=== PATIENT | male | born 1970 | race Caucasian/White ===

== ENCOUNTER 2019-07-13 17:35 | Emergency (ER) | payer SELFPAY ==
[2019-07-13] MEDS ORDERED: NA CHLORIDE 0.9% 1,000 ML ONE (17:43)
[2019-07-13] MEDS ORDERED: KETOROLAC 30 MG/ML INJ ONE (17:43)
[2019-07-13 18:06] LABS: Hematocrit 45.7 % (39.6-49.0); Lymphocytes % 19.5 % (15.3-44.8); RBC Red Blood Cell Count 5.15 M/uL (4.33-5.43)
[2019-07-13] MEDS ORDERED: HYDROMORPHONE HCL 1 MG/ML INJ ONE (18:15)
[2019-07-13 18:22] LABS: Potassium 3.6 mmol/L (3.5-5.1)
--- NOTE | 2019-07-13 18:43 | RAD REPORT ---
EXAM DESCRIPTION: CT - Stone Protocol - 07/13/2019 6:09 pm CLINICAL HISTORY: Flank pain. FLANK PAIN COMPARISON: <Comparisons> TECHNIQUE: Axial images were obtained without oral or IV contrast. Lack of contrast limits solid org an and vascular assessment. The [id number] spans the entirety of the system partially obscuring uppermost abdomen and lung bases. Coronal reformatted images were obtained and reviewed. All CT scans are performed using dose optimization technique as appropriate and may include automated exposure control or mA/KV adjustment according to patient size. FINDINGS: The lower lung brizuela are clear. Imaged portions of the liver and spleen show no suspicious findings on non-contrast imaging. The panc reas and adrenal glands are normal. No pathologic lymphadenopathy in the abdomen or pelvis. No urinary tract stones or obstructive uropathy. No bowel obstruction, free air, free fluid or abscess. Mild sigmoid diverticulosis coli. Normal appen gerardo noted. No significant bony abnormality. IMPRESSION: No urinary tract stones or obstructive uropathy.
--- NOTE | 2019-07-13 20:57 | RAD REPORT ---
EXAM DESCRIPTION: CTAbdomen Pelvis W Contrast - 07/13/2019 8:35 pm CLINICAL HISTORY: Abdominal pain. ABD PAIN COMPARISON: Stone Protocol dated 07/13/2019 TECHNIQUE: Biphasic CT imaging of the abdomen and pelvis was performed with 100 ml non-ionic IV cont rast. All CT scans are performed using dose optimization technique as appropriate and may include automated exposure control or mA/KV adjustment according to patient size. FINDINGS: The lung bases are clear. Mild diffuse fatty liver is seen. The spleen, pancreas, adrenal glands and right kidney are normal. T he left kidney demonstrates several areas of diminished arterial enhancement involving the cortex of the mid and posterior lower left kidney most compatible with areas of segmental renal infarction. No hydronephrosis. No evidence of renal vein thrombus. No bowel obstruction, free air, free fluid or abscess. The appendix is normal. No evidence of signi ficant lymphadenopathy. No suspicious bony findings. 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
--- NOTE | 2019-07-13 22:40 | EDPHYS ---
Physician Documentation [facility] Name: Vinh Terrazas Age: 49 yrs Sex: Male : 1970 Arrival Date: 07/13/2019 Time: 17:37 Bed 5 Private MD: ED Physician Shaquille Escamilla HPI: 07/13 18:27 This 49 yrs old Male presents to ER via EMS with complaints of Abdominal Pain. gs 18:27 The patient presents with abdominal pain in the left lower quadrant. Onset: The gs symptoms/episode began/occurred acutely, just prior to arrival. The symptoms do not radiate. Associated signs and symptoms: Pertinent negatives: dysuria, fever, shortness of breath. The symptoms are described as sharp. Modifying factors: The symptoms are alleviated by nothing, the symptoms are aggravated by nothing. Severity of pain: At its worst the pain was severe in the emergency department the pain is unchanged. The patient has not experienced similar symptoms in the past. Historical: - Allergies: 17:41 No Known Allergies; ss - Home Meds: 17:41 montelukast oral oral [Active]; levothyroxine oral [Active]; amlodipine oral [Active]; ss Trazodone Oral [Active]; - PMHx: 17:41 Migraines; Hypertension; Hypothyroidism; ss - PSHx: 17:41 R elbow; ss - Immunization history:: Adult Immunizations up to date. - Social history:: Smoking status: Patient/guardian denies using tobacco. - Ebola Screening: : Patient denies exposure to infectious person Patient denies travel to an Ebola-affected area in the 21 days before illness onset. ROS: 18:27 All other systems are negative. gs 22:38 Constitutional: Negative for fever, chills, and weight loss, Eyes: Negative for injury, tw4 pain, redness, and discharge, Cardiovascular: Negative for chest pain, palpitations, and edema, Respiratory: Negative for shortness of breath, cough, wheezing, and pleuritic chest pain, MS/Extremity: Negative for injury and deformity, Skin: Negative for injury, rash, and discoloration, Neuro: Negative for headache, weakness, numbness, tingling, and seizure. 22:38 Abdomen/GI: Positive for abdominal pain, Negative for nausea and vomiting, nausea, vomiting, and diarrhea, nausea. Exam: 18:27 Head/Face: Normocephalic, atraumatic. Eyes: Pupils equal round and reactive to light, gs extra-ocular motions intact. Lids and lashes normal. Conjunctiva and sclera are non-icteric and not injected. Cornea within normal limits. Periorbital areas with no swelling, redness, or edema. ENT: Nares patent. No nasal discharge, no septal abnormalities noted. Tympanic membranes are normal and external auditory canals are clear. Oropharynx with no redness, swelling, or masses, exudates, or evidence of obstruction, uvula midline. Mucous membranes moist. Neck: Trachea midline, no thyromegaly or masses palpated, and no cervical lymphadenopathy. Supple, full range of motion without nuchal rigidity, or vertebral point tenderness. No Meningismus. Chest/axilla: Normal chest wall appearance and motion. Nontender with no deformity. No lesions are appreciated. Cardiovascular: Regular rate and rhythm with a normal S1 and S2. No gallops, murmurs, or rubs. Normal PMI, no JVD. No pulse deficits. 18:27 Respiratory: Lungs have equal breath sounds bilaterally, clear to auscultation and percussion. No rales, rhonchi or wheezes noted. No increased work of breathing, no retractions or nasal flaring. Back: No spinal tenderness. No costovertebral tenderness. Full range of motion. Male : Normal genitalia with no discharge or lesions. Skin: Warm, dry with normal turgor. Normal color with no rashes, no lesions, and no evidence of cellulitis. MS/ Extremity: Pulses equal, no cyanosis. Neurovascular intact. Full, normal range of motion. Neuro: Awake and alert, GCS 15, oriented to person, place, time, and situation. Cranial nerves II-XII grossly intact. Motor strength 5/5 in all extremities. Sensory grossly intact. Cerebellar exam normal. Normal gait. 18:27 Constitutional: The patient appears alert, awake. 18:27 Constitutional: The patient appears diaphoretic, in obvious distress, severely distressed. 18:27 Abdomen/GI: Inspection: distension, that is mild, Palpation: nontender, in all quadrants. Vital Signs: 17:41 BP 159 / 122; Pulse 95; Resp 21; Temp 98.1(O); Pulse Ox 98% on R/A; Weight 158.76 kg; ss Height 6 ft. 0 in. (182.88 cm); Pain 10/10; 18:30 BP 171 / 100; Pulse 85; Resp 15; Pulse Ox 97% on R/A; rv 19:00 BP 170 / 99; Pulse 88; Resp 16; Pulse Ox 95% on R/A; rv 19:30 BP 157 / 97; Pulse 84; Resp 15; Pulse Ox 99% on R/A; rv 20:00 BP 154 / 101; Pulse 90; Resp 17; Pulse Ox 97% on R/A; rv 21:41 BP 136 / 91; Pulse 99; Resp 15; Pulse Ox 99% on R/A; mt 23:23 BP 134 / 96; Pulse 89; Resp 17; Temp 98; Pulse Ox 98% on R/A; rv 17:41 Body Mass Index 47.47 (158.76 kg, 182.88 cm) ss MDM: 17:40 Patient medically screened. gs 22:34 Data reviewed: vital signs, nurses notes. Data interpreted: Pulse oximetry: tw4 Interpretation: normal. Counseling: I had a detailed discussion with the patient and/or guardian regarding: the historical points, exam findings, and any diagnostic results supporting the discharge/admit diagnosis, radiology results. Special discussion: Based on the history and exam findings, there is no indication for further emergent testing or inpatient evaluation. I discussed with the patient/guardian the need to see the urologist for further evaluation of the symptoms. 07/13 17:41 Order name: CBC with Diff; Complete Time: 18:27 07/13 17:41 Order name: Basic Metabolic Panel; Complete Time: 18:27 07/13 22:21 Order name: Urine Dipstick--Ancillary (enter results) ar5 07/13 17:41 Order name: CT Stone Protocol; Complete Time: 18:45 07/13 17:41 Order name: Urine Dipstick-Ancillary (obtain specimen); Complete Time: 22:33 07/13 18:21 Order name: EKG - Nurse/Tech; Complete Time: 19:09 07/13 18:57 Order name: CT Abd/Pelvis - PO and IV Contrast; Complete Time: 21:53 gs EC:50 Rate is 85 beats/min. Rhythm is regular. QRS [place] is Normal. IN interval is normal. No tw4 Q waves. T waves are Inverted in lead aVF. No ST changes noted. Clinical impression: NSR w/ Non-specific ST/T Changes. Interpreted by me. Reviewed by me. Administered Medications: 17:52 Drug: TORadol - Ketorolac 15 mg Route: IVP; Site: left antecubital; rv 18:19 Follow up: Response: No adverse reaction; Pain is unchanged, physician notified ph 17:52 Drug: NS 0.9% 1000 ml Route: IV; Rate: 1 bolus; Site: left antecubital; rv 19:03 Follow up: IV Status: Completed infusion; IV Intake: 1000ml rv 18:19 Drug: Dilaudid 1 mg Route: IVP; Site: left antecubital; ph 22:33 Follow up: Response: RASS: Alert and Calm (0) rv Disposition: 07/13/19 22:38 Transfer ordered to [facility]. Diagnosis is Renal infarction. - Reason for transfer: Higher level of care. - Accepting physician is Dr [facility]. - Condition is Stable. - Problem is new. - Symptoms have improved. Signatures: Dispatcher [employer] EDMS Tierney Clinton RN RN ss Iglesia Hearn PA PA [id number] Alana Guerra RN RN Xander Gimenez MD MD Shaquille Escamilla MD MD tw4 Matt Salmeron, RN RN rv Corrections: (The following items were deleted from the chart) 07/14 00:10 07/13 22:38 07/13/2019 22:38 Transfer ordered to [facility]. rv Diagnosis is Renal infarction. Reason for transfer: Higher level of care. Accepting physician is Dr [facility]. Condition is Stable. Problem is new. Symptoms have improved. tw4
--- NOTE | 2019-07-13 22:40 | ER ---
Nurse's Notes [facility] Name: Vinh Terrazas Age: 49 yrs Sex: Male : 1970 Arrival Date: 07/13/2019 Time: 17:37 Bed 5 Private MD: Diagnosis: Renal infarction Presentation: 07/13 17:37 Presenting complaint: Patient states: Sudden onset of sharp, LLQ pain that began at ss 1730 today. Pt also reports intermittent nausea. Does not radiate. Transition of care: patient was not received from another setting of care. Onset of symptoms was July 13, 2019. Risk Assessment: Do you want to hurt yourself or someone else? Patient reports no desire to harm self or others. Initial Sepsis Screen: Does the patient meet any 2 criteria? RR > 20 per min. HR > 90 bpm. Does the patient have a suspected source of infection? No. Patient's initial sepsis screen is negative. Care prior to arrival: None. 17:37 Method Of Arrival: EMS: [facility] 17:37 Acuity: GABBY 2 ss Historical: - Allergies: 17:41 No Known Allergies; ss - Home Meds: 17:41 montelukast oral oral [Active]; levothyroxine oral [Active]; amlodipine oral [Active]; ss Trazodone Oral [Active]; - PMHx: 17:41 Migraines; Hypertension; Hypothyroidism; ss - PSHx: 17:41 R elbow; ss - Immunization history:: Adult Immunizations up to date. - Social history:: Smoking status: Patient/guardian denies using tobacco. - Ebola Screening: : Patient denies exposure to infectious person Patient denies travel to an Ebola-affected area in the 21 days before illness onset. Screenin:53 Abuse screen: Denies threats or abuse. Denies injuries from another. Nutritional rv screening: No deficits noted. Tuberculosis screening: No symptoms or risk factors identified. Fall Risk None identified. Assessment: 17:52 General: Appears in no apparent distress. uncomfortable, Behavior is calm, cooperative. rv Pain: Complains of pain in abdomen. Neuro: Level of Consciousness is awake, alert, obeys commands, Oriented to person, place, time, situation. Cardiovascular: Patient's skin is warm and dry. Respiratory: Airway is patent. GI: Abdomen is round Bowel sounds present X 4 quads. Abd is soft and non tender X 4 quads. : No signs and/or symptoms were reported regarding the genitourinary system. EENT: No signs and/or symptoms were reported regarding the EENT system. Derm: Skin is intact. Musculoskeletal: No signs and/or symptoms reported regarding the musculoskeletal system. 19:07 Reassessment: Patient appears in no apparent distress at this time. Patient and/or rv family updated on plan of care and expected duration. Pain level reassessed. Patient is alert, oriented x 3, equal unlabored respirations, skin warm/dry/pink. 23:24 Reassessment: report given to [facility]. awaiting transportation. rv Vital Signs: 17:41 BP 159 / 122; Pulse 95; Resp 21; Temp 98.1(O); Pulse Ox 98% on R/A; Weight 158.76 kg; ss Height 6 ft. 0 in. (182.88 cm); Pain 10/10; 18:30 BP 171 / 100; Pulse 85; Resp 15; Pulse Ox 97% on R/A; rv 19:00 BP 170 / 99; Pulse 88; Resp 16; Pulse Ox 95% on R/A; rv 19:30 BP 157 / 97; Pulse 84; Resp 15; Pulse Ox 99% on R/A; rv 20:00 BP 154 / 101; Pulse 90; Resp 17; Pulse Ox 97% on R/A; rv 21:41 BP 136 / 91; Pulse 99; Resp 15; Pulse Ox 99% on R/A; mt 23:23 BP 134 / 96; Pulse 89; Resp 17; Temp 98; Pulse Ox 98% on R/A; rv 17:41 Body Mass Index 47.47 (158.76 kg, 182.88 cm) ED Course: 17:37 Patient arrived in ED. ss 17:37 Xander Gimenez MD is Attending Physician. gs 17:38 Triage completed. ss 17:39 Alana Guerra, SAMM is Primary Nurse. ph 17:45 Missed attempt(s): 20 gauge in right forearm. Bleeding controlled, band aid applied, dh3 catheter tip intact. 17:48 Missed attempt(s): 20 gauge in left hand. Bleeding controlled, band aid applied, dh3 catheter tip intact. 17:53 Patient has correct armband on for positive identification. Placed in gown. Bed in low rv position. Call light in reach. Side rails up X 1. Pulse ox on. NIBP on. 17:53 Patient placed in the treatment room, on a stretcher, on pulse oximetry, Patient rv notified of wait time. 17:53 Inserted saline lock: 20 gauge in left antecubital area, using aseptic technique. Blood rv collected. 18:08 CT completed. Patient tolerated procedure well. Patient moved back from CT. bq 18:10 CT Stone Protocol In Process Unspecified. EDMS 20:35 CT Abd/Pelvis - PO and IV Contrast In Process Unspecified. EDMS 20:35 CT completed. Patient tolerated procedure well. Patient moved back from CT. mw3 23:24 No provider procedures requiring assistance completed. Patient transferred, IV remains rv in place. 23:50 Attending Physician role handed off by Xander Gimenez MD tw4 23:50 Shaquille Escamilla MD is Attending Physician. tw4 Administered Medications: 17:52 Drug: TORadol - Ketorolac 15 mg Route: IVP; Site: left antecubital; rv 18:19 Follow up: Response: No adverse reaction; Pain is unchanged, physician notified ph 17:52 Drug: NS 0.9% 1000 ml Route: IV; Rate: 1 bolus; Site: left antecubital; rv 19:03 Follow up: IV Status: Completed infusion; IV Intake: 1000ml rv 18:19 Drug: Dilaudid 1 mg Route: IVP; Site: left antecubital; ph 22:33 Follow up: Response: RASS: Alert and Calm (0) rv Intake: 19:03 IV: 1000ml; Total: 1000ml. rv Outcome: 22:38 ER care complete, transfer ordered by . tw4 23:24 Transferred by ground EMS to [facility], Transfer form completed. rv X-rays sent w/ patient. 23:24 Condition: stable 23:24 Instructed on the need for transfer. 18 00:10 Patient left the ED. rv Signatures: Dispatcher [employer] EDMS Yaima Bach Shelby, RN RN Alana Guerra RN [place] [id number] Gimenez, Xander, MD Shaquille Serrano MD MD tw4 Stephanie Karimi [id number] Matt Salmeron, RN RN rv
[2019-07-14 00:04] LABS: Urine Blood NEGATIVE (NEG); Urine Glucose NEGATIVE (NEG); Urine Protein NEGATIVE (NEG)
--- NOTE | 2019-07-14 16:57 | EKG ---
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
== END 2019-07-14 00:10 | disposition short-term general hospital (02) ==
LOC: ER 17:35
DX: N28.0 Ischemia and infarction of kidney (principal); I10 Essential (primary) hypertension; E03.9 Hypothyroidism, unspecified
CPT/HCPCS: 36415; 74176; 74177; 76377; 80048; 81003; 85025; 93005; 96361; 96374; 96375; 99285; J1170; J7030; Q9967